=== PATIENT | female | born 1940 | race Caucasian/White ===

== ENCOUNTER → 2017-08-17 | Outpatient (CLI) | payer OTHER, BC ==
[~2017-08-17] MED LIST: IOPAMIDOL (ISOVUE-300) 100 ML BTL ONE
== END ==
LOC: FIMAGING 12:44
PROVIDERS: ATTEND Physician Assistant
DX: K76.9 Liver disease, unspecified (principal); I87.8 Other specified disorders of veins; K59.00 Constipation, unspecified; K57.00 Diverticulitis of small intestine with perforation and abscess without bleeding
CPT/HCPCS: 74177; Q9967

== ENCOUNTER → 2017-08-24 | Outpatient (CLI) | payer OTHER, BC ==
[~2017-08-24] MED LIST changes: -IOPAMIDOL (ISOVUE-300) 100 ML BTL ONE; +REGADENOSON 0.4 MG/5 ML SYR IVP ONE
--- NOTE | 2017-08-25 01:27 | CPR ---
[f rep st] NONINVASIVE CARDIAC PROCEDURE REPORT DATE OF PROCEDURE: 08/24/2017 PROCEDURE: Lexiscan nuclear stress test. INDICATION: The patient is a 77-year-old female with a history of coronary artery disease status pos t stenting to the left anterior descending artery in April 2012 who presented to our office for preop clearance. She has a history of chronic hypoxia, on continuous oxygen. She has also been complainin g of abdominal discomfort and very rare chest discomfort. DESCRIPTION OF PROCEDURE: Consent was obtained, and the patient was placed on continuous telemetry. Her resting EKG revealed normal sinus rhythm at a rate of 64, LA interval of 140, QRS duration of 86 , and a QTc of 458. She had inferior Q-waves. The patient was unable to walk on a treadmill seconda ry to knee pain and therefore, was injected with Lexiscan. She had mild symptoms associated with the infusion. She remained in normal sinus rhythm without any significant ST-T wave changes throughout the study. Her blood pressure at rest was 122/80 and remained stable throughout the procedure. PLAN: Await nuclear images. /[id number]/MODL
== END ==
LOC: FIMAGING 13:33
PROVIDERS: ATTEND Physician Assistant
DX: Z01.810 Encounter for preprocedural cardiovascular examination (principal); I25.10 Atherosclerotic heart disease of native coronary artery without angina pectoris; I10 Essential (primary) hypertension
CPT/HCPCS: 78452; A9500; J2785

== ENCOUNTER 2017-09-07 08:42 | Inpatient (IN) | payer OTHER, BC ==
--- NOTE | 2017-09-06 11:56 | GHP ---
[f rep st] PREOP HISTORY AND PHYSICAL DATE OF ADMISSION: 09/07/2017 HISTORY: The patient is a 77-year-old female, who presents with left knee pain, stiffness and swelli ng. She has longstanding left knee osteoarthritis, this impacts her activities of daily living, caus es her to limp and have an abnormal gait. She has tried multiple conservative measures. She has had a previous scope and viscosupplementation series. She has tried therapeutic exercises. Her knee is becoming less and less manageable for her in terms of quality of life, so a left total knee arthropl asty is planned. PAST MEDICAL HISTORY: Significant for coronary artery disease, she has a stent, hypercholesterolemia , hypertension. She does have sleep apnea and uses a CPAP machine. ALLERGIES: She has no known drug allergies. CURRENT MEDICATIONS: Diltiazem 180 mg daily, sublingual nitroglycerin if needed, omeprazole 40 mg p. o. daily, oxybutynin chloride 5 mg p.o. daily, supplement PreserVision, sertraline 50 mg tablets p.o. daily, simvastatin 10 mg p.o. daily. SURGICAL HISTORY: Includes bilateral cataracts, appendectomy, colonoscopy, had a right bunion proced ure in 2008, knee scope in 2004, tonsillectomy, total hysterectomy, nasal septal procedure. REVIEW OF SYSTEMS: CARDIOPULMONARY: Positive for her coronary artery disease as well as sleep apnea . GI: Positive reflux. PHYSICAL EXAM: GENERAL: A well-developed, well-nourished female in no apparent distress. HEAD AND NECK: Normocephalic, atraumatic. CHEST: Clear. CARDIOVASCULAR: Regular rate and rhythm. ABDOMEN : Soft. NEUROLOGIC: She is alert and oriented x3. EXTREMITIES: Examination of the left knee show s varus alignment. She has a small flexion contracture. She flexes only to about 90 degrees. She h as an effusion and significant joint line tenderness, especially medially. Her skin and neurovascula r exams appear intact. IMPRESSION: Left knee osteoarthritis. PLAN: Left total knee arthroplasty. Benefits and risks of surgery have been reviewed with the patie nt. She understands that the risks include infection, damage to blood vessels and nerves, failure or loosening of the components and need for revision, blood clot in the leg or lungs, bleeding and need for transfusion. She was seen for medical clearance at [facility] in August 2017. Of note, her aspirin that she was using at 325 mg was discontinued. She was placed on 81 mg of aspirin, and her Plavix was discontinued on 08/11/2017. /[id number]/MODL
[~2017-09-07 08:42] MED LIST changes: +POVIDONE-IODINE 20 ML in SODIUM CL IRRIG SOLUTION 500 ML IRR ONE; -REGADENOSON 0.4 MG/5 ML SYR IVP ONE; +ROPIVACAINE 0.2% 80 MG, EPINEPHrine 0.2 MG, KETOROLAC TROMETHAMINE 30 MG in BAG 0 ML IU ONE; +TRANEXAMIC ACID 760 MG in NS 100 ML IV ONE
[2017-09-07] MEDS ORDERED: ceFAZolin 1 GM/5 ML SYR ONE (08:52)
[2017-09-07] MEDS ORDERED: FAMOTIDINE 20 MG TAB PO ONE (09:10)
[2017-09-07] MEDS ORDERED: DEXAMETHASONE 4 MG/ML VIAL IVP ONE (09:10)
[2017-09-07] MEDS ORDERED: ACETAMINOPHEN 325 MG TAB PO ONE (09:10)
[2017-09-07] MEDS ORDERED: ceFAZolin 2 GM/SWFI 2 GM/20 ML SYR IVP ONE (09:10)
[2017-09-07] MEDS ORDERED: LIDOCAINE 1% 2 ML INJ ID PRN (09:16)
[2017-09-07] MEDS ORDERED: LR 1,000 ML IV ONE (09:16)
[2017-09-07 09:33] LABS: PLATELET COUNT 178 10^3/uL (150-400)
[2017-09-07] MEDS ORDERED: BUPIVACAINE 0.5% 30 ML SDV ONE (09:48)
[2017-09-07] MEDS ORDERED: PROPOFOL/EMULSION 500 MG/50 ML BOTTLE IV ONE ×2 (09:49→11:10)
[2017-09-07] MEDS ORDERED: fentaNYL 100 MCG/2 ML INJ ONE (10:37)
[2017-09-07] MEDS ORDERED: ALBUTEROL 3 ML DEYVIAL IH PRN (11:17)
[2017-09-07] MEDS ORDERED: LR 500 ML IV PRN (11:17)
[2017-09-07] MEDS ORDERED: ACETAMINOPHEN 500 MG TAB PO PRN (11:17)
[2017-09-07] MEDS ORDERED: ONDANSETRON 4 MG/2 ML VIAL IVP PRN ×2 (11:17→12:06)
[2017-09-07] MEDS ORDERED: HYDROmorphONE/DILAUDID 1 MG/ML INJ IVP PRN (11:17)
[2017-09-07] MEDS ORDERED: OXYCODONE/APAP 5/325 TAB PO PRN (11:17)
[2017-09-07] MEDS ORDERED: NALOXONE HCL 0.4 MG/ML INJ IVP PRN ×2 (11:17)
[2017-09-07] MEDS ORDERED: fentaNYL 100 MCG/2 ML INJ IVP PRN (11:17)
--- NOTE | 2017-09-07 12:00 | POSTANESTH ---
Post Anesthetic Evaluation Cardiovascular Status: Normal, Stable Respiratory Status: Normal, Stable Level of Consciousness/Mental Status: Can Participate in Eval Pain Control: Adequate, Prn Tx Ordered Nausea/Vomiting Control: Adequate, Prn Tx Ordered Complications Possibly Related to Anesthesia: None Noted
[2017-09-07] MEDS ORDERED: PROMETHAZINE HCL 25 MG SUPPR PR PRN (12:06)
[2017-09-07] MEDS ORDERED: POLYETHYLENE GLYCOL 3350 17 GM PKT PO PRN (12:06)
[2017-09-07] MEDS ORDERED: CYCLOBENZAPRINE 10 MG TAB PO PRN (12:06)
[2017-09-07] MEDS ORDERED: DIPHENOXYLATE/ATROPINE LOMOTIL 1 TAB PO PRN (12:06)
[2017-09-07] MEDS ORDERED: MAGNESIUM HYDROXIDE 30 ML UDCUP PO PRN (12:06)
[2017-09-07] MEDS ORDERED: KETOROLAC 30 MG/1 ML SDV IVP PRN (12:06)
[2017-09-07] MEDS ORDERED: PROMETHAZINE HCL 25 MG/ML INJ IVP PRN (12:06)
[2017-09-07] MEDS ORDERED: TEMAZEPAM 15 MG CAP PO PRN (12:06)
[2017-09-07] MEDS ORDERED: diphenhydrAMINE 25 MG CAP PO PRN (12:06)
[2017-09-07] MEDS ORDERED: ONDANSETRON DISINTEGRATING 4 MG TAB PO PRN (12:06)
[2017-09-07] MEDS ORDERED: BISACODYL 10 MG SUPP PR PRN (12:06)
[2017-09-07] MEDS ORDERED: METOCLOPRAMIDE 10 MG/2 ML VIAL IVP PRN (12:06)
[2017-09-07] MEDS ORDERED: LACTULOSE 20 GM/30 ML UDCUP PO PRN (12:06)
[2017-09-07] MEDS ORDERED: NITROGLYCERIN 0.4 MG BTL SL PRN (12:08)
[2017-09-07] MEDS ORDERED: LR 1,000 ML IV SCH (12:30)
--- NOTE | 2017-09-07 13:10 | PDANEPAE ---
ANE Past Medical History - Cardiovascular History Hx Hypertension: Yes Hx Arrhythmias: No Hx Chest Pain: Yes Hx Coronary Artery / Peripheral Vascular Disease: No Hx CHF / Valvular Disease: No Hx Palpitations: No - Pulmonary History Hx COPD: No Hx Asthma/Reactive Airway Disease: No Hx Recent Upper Respiratory Infection: No Hx Oxygen in Use at Home: Yes O2 in Use at Home (L/minute): 3 Hx Sleep Apnea: Yes Sleep Apnea Screening Result - Last Documented: Positive Pulmonary History Comment: TEMO USING C-PAP HS AND DURING THE DAY OXYGEN FOR HYPOXEMIA AT ALTITUDE - Neurologic History Hx Cerebrovascular Accident: No Hx Seizures: No Hx Dementia: No - Endocrine History Hx Diabetes: No Obesity: yes - Renal History Hx Renal Disorders: Yes Renal History Comment: OVER ACTIVE BLADDER - Liver History Hx Hepatic Disorders: No - Neurological & Psychiatric Hx Hx Neurological and Psychiatric Disorders: Yes Neurological / Psychiatric History Comment: ANXIETY - Cancer History Hx Cancer: No - Congenital Disorder History Hx Congenital Disorders: No - GI History Hx Gastrointestinal Disorders: Yes Gastrointestinal History Comment: HEARTBURN - Other Health History Other Health History: OSTEOARTHRITIS. INTERMITTENT NAUSEA AND VOMITING,DIARRHEA - Chronic Pain History Chronic Pain: Yes (LT KNEE) - Surgical History Prior Surgeries: MATT CATARACT. APPY. HEART STENT. MATT BUNION. LT KNEE SCOPE. HYSTERECTOMY. SEPTOPLASTY. REMVL LT BREAST CYST ANE Review of Systems Review of systems is: negative Review of Systems: - Exercise capacity METS (RN): 3 METS ANE Patient History - Allergies Allergies/Adverse Reactions: No Known Allergies Allergy (Unverified 10/19/09 07:53) - Home Medications Home medications: home medication list seen and reviewed Home Medications: Diltiazem Cd [Cardizem ER 180 MG (RX)] 180 mg PO DAILY 04/05/12 [Last Taken 04/18] Nitroglycerin [Nitrostat 0.4 mg (RX)] 0.4 mg SL PRN PRN 04/05/12 [Last Taken Unknown] Simvastatin [Zocor 10 mg (RX)] 10 mg PO DAILY 04/05/12 [Last Taken 09/06/17] Aspirin [Aspirin 325 mg (*)] 325 mg PO HS 08/04/17 [Last Taken 08/11/17] Clopidogrel Bisulfate [Plavix (*)] 75 mg PO DAILY 08/04/17 [Last Taken 08/11/17] Omeprazole [Prilosec 20 mg] 40 mg PO BIDMEAL 08/04/17 [Last Taken 09/07/17] Oxybutynin Chloride Xl [Ditropan Xl 5mg (*)] 5 mg PO BID 08/04/17 [Last Taken ] traMADol [Ultram 50 mg (*)] 50 mg PO BID 08/04/17 [Last Taken 09/07/17] Sertraline HCl [Zoloft 50mg (*)] 50 mg PO HS 08/13/17 [Last Taken 09/07/17] - NPO status NPO Since - Liquids (Date): 09/06/17 NPO Since - Liquids (Time): 19:30 NPO Since - Solids (Date): 09/06/17 NPO Since - Solids (Time): 19:00 - Smoking Hx Smoking Status: Never smoked ANE Labs/Vital Signs - Labs Result Diagrams: 09/07/17 09:20 - Vital Signs Blood Pressure: 116/78 Heart Rate: 73 Respiratory Rate: 17 O2 Sat (%): 92 Height: 154.94 cm Weight: 76.204 kg ANE Physical Exam - Airway Neck exam: FROM Mallampati Score: Class 2 Mouth exam: normal dental/mouth exam - Pulmonary Pulmonary: no respiratory distress - Cardiovascular Cardiovascular: regular rate and rhythym - ASA Status ASA Status: III ANE Anesthesia Plan Anesthesia Plan: spinal Regional Anesthesia: single shot NB, adductor canal FNB Urgent/Emergent Case: Erika cuevas completed preop but documented later for safe timely pt care
--- NOTE | 2017-09-07 13:19 | GOP ---
[f rep st] OPERATIVE REPORT DATE OF OPERATION: 09/07/2017 SURGEON: Luis De La Rosa MD HAZARDOUS MATERIAL SPECIALIST: Juan Lee, CSFA, LSA, medical necessity. PREOPERATIVE DIAGNOSIS: Left knee osteoarthritis. POSTOPERATIVE DIAGNOSIS: Left knee osteoarthritis. PROCEDURE PERFORMED: Left total knee arthroplasty. FINDINGS: SPECIMENS: include excised bone. ESTIMATED BLOOD LOSS: Estimated blood loss minimal. INDICATIONS: The patient is a 77-year-old female, who presents with history, exam and x-rays consist ent with severe left knee osteoarthritis. She has tried multiple conservative measures, including vi scosupplementation series. She continues to have pain that impacts her gait, her range of motion, qu ality of life and activities of daily living. She has elected to undergo a left total knee arthropla sty. DESCRIPTION OF PROCEDURE: The patient was taken to the operating room, in the seated position a spin al anesthetic was administered. She then had IV sedation. She received 2 g of IV Ancef, she receive d her first dose of tranexamic acid. A tourniquet was fit high on the left thigh and left leg was pr epped and draped free with chlorhexidine in the usual fashion. We used standard draping. The limb w as elevated, exsanguinated, tourniquet inflated 250 mmHg. I made a longitudinal incision in the midl ine. I used a medial parapatellar arthrotomy. I inverted the patella. I removed osteophytes and me asured the thickness of the patella which was quite thin, I removed about 6 mm of cartilage and bone leaving 11 mm of the patella and I sized this to a 32. I drilled peg holes. The combination of the patella and the implant was a little thicker than her original dimension but I want to preserve enoug h bone to avoid fracture. The component was a good fit. I then flexed the knee. I drilled a ship's pilot hole in the distal femur using intramedullary device to gauge my distal femoral cut. I did a 5 degre e valgus cut. There was no flexion contracture, so I did a neutral 5 degree valgus cut. I sized the femur to a size 4. I applied the cutting block and then completed the anterior, posterior and chamf er cuts, as well as the notch cuts for this bi-cruciate stabilized knee. The size 4 component was a good fit. I placed a posterior and lateral retractors. I debrided the labral tissue. I used an ext ramedullary device on the tibia. I adjusted for posterior slope and rotation, appropriate depth and made a transverse cut. I sized the tibia at a 3 and dialed in the rotation, marked this and complete d the tibial prep. Trial reductions showed that a 9 mm liner was a good fit. All the components wer e removed. I jet lavaged all the surfaces with antibiotic solution and dried them. Cement was appli ed to the tibia and the tibial component was hammered into place. Excess cement removed. Likewise, the femoral component was applied and then the patella. I did trial reductions, and I found that a 1 0 mm liner was the best fit so the cross-linked poly tibial liner was snapped into the tibial tray. The knee had excellent stability, full extension, nice rollback in flexion. The patella tracked well . Collateral stability was excellent. I used antibiotic irrigation including a Betadine rinse. I i nfiltrated a joint cocktail. A second tranexamic acid dose was given. The arthrotomy was closed wit h interrupted [id number] sutures of 0 [place], subcutaneous tissue was closed with 3-0 Monocry l, and the skin with ruddy. The wound was dressed with Betadine-soaked Adaptic, 4 x 4, sterile Web ril, and a long-leg NOEMÍ stocking. There were no complications. DRAINS: None. COUNTS: All counts correct. DISPOSITION: The patient was taken in stable condition to recovery. TOURNIQUET TIME: About 70 minutes. SUMMARY OF COMPONENTS: This is a Solomon and Nephew, bi cruciate stabilized knee. All components ceme nted. The femur is Oxinium. The tibial tray is crosslink poly. The femur size 4, tibia size 3, pat symone 32 and the liner is 10 mm thick. /[id number]/MODL
[2017-09-07] MEDS: ceFAZolin 2 GM/DEXTROSE 100 ML IV SCH ×2 (13:46→22:12)
[2017-09-07] MEDS: PANTOPRAZOLE SODIUM 40 MG TAB PO SCH (17:56)
[2017-09-07] MEDS: ACETAMINOPHEN 325 MG TAB PO SCH ×2 (17:56→22:57)
[2017-09-07] MEDS ORDERED: NON-FORMULARY NEW DRUG (Omeprazole [Prilosec 20 Mg] 40 MG) PO SCH (18:00)
[2017-09-07] MEDS: ASPIRIN 325 MG TAB PO SCH (20:48)
[2017-09-07] MEDS: FAMOTIDINE 20 MG TAB PO SCH (20:50)
[2017-09-07] MEDS: OXYBUTYNIN 5 MG EXT REL TAB PO SCH (20:51)
[2017-09-07] MEDS: SENNOSIDES/DOCUSATE SODIUM TAB PO SCH (20:54)
[2017-09-07] MEDS ORDERED: SERTRALINE HCL 50 MG TAB PO SCH (21:00)
[2017-09-07] MEDS ORDERED: ASPIRIN 325 MG TAB PO SCH (21:00)
[2017-09-07] MEDS: oxyCODONE IR 5 MG TAB PO PRN (22:59)
[2017-09-08 05:08] VITALS: RESP 16
[2017-09-08] MEDS: oxyCODONE IR 5 MG TAB PO PRN ×2 (05:19→15:18)
[2017-09-08] MEDS: ACETAMINOPHEN 325 MG TAB PO SCH ×2 (05:19→12:02)
[2017-09-08] MEDS ORDERED: FLU VACC QS 2017-18 (3YR+)/PF 0.5 ML SYR (FLUARIX QUAD) IM ONE (05:21)
--- NOTE | 2017-09-08 07:53 | SOAPPROG ---
SOAP Progress Note Assessment/Plan: Assessment: POD#1 L TKA, pain controlled, Hct 39 Plan: 09/08/17 07:49 PT/OT. Rehab stay, march d/c later today Objective: Vital Signs Temp Pulse Resp BP Pulse Ox 36.9 C 73 16 129/76 H 94 09/08/17 04:00 09/08/17 04:00 09/08/17 04:00 09/08/17 04:00 09/08/17 04:00 Laboratory Results 09/08/17 04:59 09/07/17 09/08/17 09/09/17 05:59 05:59 05:59 Intake Total 810 Output Total 976 Balance -166 ICD10 Worksheet Patient Problems: Problems Problem Status Onset Osteoarthritis of left knee Acute Osteoarthritis of left knee Acute - ICD10 Problem Qualifiers (1) Osteoarthritis of left knee (2) Osteoarthritis of left knee
--- NOTE | 2017-09-08 07:56 | PDIAF ---
- Diagnosis Code Status: Full Code - Medication Management Discharge Medications: Medications to Continue on Transfer Diltiazem Cd [Cardizem ER 180 MG (RX)] 180 mg PO DAILY 04/05/12 [Last Taken 04/18] Nitroglycerin [Nitrostat 0.4 mg (RX)] 0.4 mg SL PRN PRN 04/05/12 [Last Taken Unknown] Simvastatin [Zocor 10 mg (RX)] 10 mg PO DAILY 04/05/12 [Last Taken 09/06/17] Aspirin [Aspirin 325 mg (*)] 325 mg PO HS 08/04/17 [Last Taken 08/11/17] Clopidogrel Bisulfate [Plavix (*)] 75 mg PO DAILY 08/04/17 [Last Taken 08/11/17] Omeprazole [Prilosec 20 mg] 40 mg PO BIDMEAL 08/04/17 [Last Taken 09/07/17] Oxybutynin Chloride Xl [Ditropan Xl 5mg (*)] 5 mg PO BID 08/04/17 [Last Taken ] traMADol [Ultram 50 mg (*)] 50 mg PO BID 08/04/17 [Last Taken 09/07/17] Sertraline HCl [Zoloft 50mg (*)] 50 mg PO HS 08/13/17 [Last Taken 09/07/17] Discharge Medications: Refer to the Discharge Home Medication list for PRN reason. - Orders Diet Recommendation: no restrictions on diet Diet Texture: Regular Texture Diet - Follow Up Care Current Providers and Referrals: CORINA ROSAS [Other]
--- NOTE | 2017-09-08 08:00 | PDIAF ---
- Diagnosis Code Status: Full Code - Medication Management Discharge Medications: Medications to Continue on Transfer Diltiazem Cd [Cardizem ER 180 MG (RX)] 180 mg PO DAILY 04/05/12 [Last Taken 04/18] Nitroglycerin [Nitrostat 0.4 mg (RX)] 0.4 mg SL PRN PRN 04/05/12 [Last Taken Unknown] Simvastatin [Zocor 10 mg (RX)] 10 mg PO DAILY 04/05/12 [Last Taken 09/06/17] Aspirin [Aspirin 325 mg (*)] 325 mg PO HS 08/04/17 [Last Taken 08/11/17] Clopidogrel Bisulfate [Plavix (*)] 75 mg PO DAILY 08/04/17 [Last Taken 08/11/17] Omeprazole [Prilosec 20 mg] 40 mg PO BIDMEAL 08/04/17 [Last Taken 09/07/17] Oxybutynin Chloride Xl [Ditropan Xl 5mg (*)] 5 mg PO BID 08/04/17 [Last Taken ] traMADol [Ultram 50 mg (*)] 50 mg PO BID 08/04/17 [Last Taken 09/07/17] Sertraline HCl [Zoloft 50mg (*)] 50 mg PO HS 08/13/17 [Last Taken 09/07/17] Discharge Medications: Refer to the Discharge Home Medication list for PRN reason. - Orders Services needed: Physical Therapy Diet Recommendation: no restrictions on diet Diet Texture: Regular Texture Diet Vladimir Stockings Discontinue Date: 2 wks Wound Care Instructions: keep covered, clean and dry Sutures/[place] Site: knee, will remove my office at 2 weeks Activity/Weight Bearing Restrictions: WBAT, full ROM - Follow Up Care Current Providers and Referrals: CORINA ROSAS [Other]
[2017-09-08] MEDS: PANTOPRAZOLE SODIUM 40 MG TAB PO SCH (08:35)
[2017-09-08] MEDS: FAMOTIDINE 20 MG TAB PO SCH (08:36)
[2017-09-08] MEDS: OXYBUTYNIN 5 MG EXT REL TAB PO SCH (08:36)
[2017-09-08] MEDS: SENNOSIDES/DOCUSATE SODIUM TAB PO SCH (08:36)
[2017-09-08] MEDS: ASPIRIN 325 MG TAB PO SCH (08:36)
[2017-09-08 08:46] VITALS: TEMP 98.4; O2SAT 91
[2017-09-08] MEDS ORDERED: DILTIAZEM CD 180 MG CAP PO SCH (09:00)
[2017-09-08] MEDS ORDERED: NON-FORMULARY NEW DRUG (Simvastatin [Zocor 10 Mg] 10 MG) PO SCH (09:00)
[2017-09-08] MEDS ORDERED: PRAVASTATIN SODIUM 20 MG TAB PO SCH (09:00)
[2017-09-08 12:25] VITALS: BP 113/79; PULSE 66
--- NOTE | 2017-09-08 13:49 | ASMTCMCOM ---
CM Note CM Note Notes: Patient is POD #[address] De La Rosa. She will discharge to [facility]. Although she is from [place], she has daughters in the area and would prefer to do rehab here. Her Brandon will stay locally. All paperwork faxed to and received by [facility]. They have set up transport for 1530 today. MADHU Templeton to call report. Date Signed: 09/08/2017 01:49 PM Electronically Signed By:Nisa Phillips RN
--- NOTE | 2017-09-09 12:16 | ASDISCHSUM ---
Discharge Information Plan Status:SNF Medically Cleared to Leave: Discharge Date:09/08/2017 03:50 PM D/C Disposition:Intermediate Facility ADT D/C Disposition:Other Rehab, Not [place] Projected Discharge Date:09/08/2017 03:00 PM Transportation at D/C:Wheelchair Van Discharge Delay Reason: Follow-Up Date:09/08/2017 03:00 PM Discharge Slot: Final Diagnosis: Placement Information Referral Type:*Retirement/SNF Referral ID:-[id number] Provider Name:[facility] Address 1:[address] Address 2: City:[place] Selection Factors: State:[place] Patient Contact Information Contact Name:DILCIA Relationship: Address:[address] Work Phone: City:[facility] Alternate Phone: State/Zip Code:[place] [phone] Email: Financial Information Financial Class: Primary Plan Desc:MEDICARE INPATIENT Primary Plan Number:[id number] Secondary Plan Desc:[facility] Secondary Plan Number:[id number] Assessment Information [facility] CM Progress Note CM Note CM Note Notes: Patient is POD #[address] De La Rosa. She will discharge to [facility]. Although she is from [place], she has daughters in the area and would prefer to do rehab here. Her Brandon will stay locally. All paperwork faxed to and received by [facility]. They have set up transport for 1530 today. MADHU Templeton to call report. Date Signed: 09/08/2017 01:49 PM Electronically Signed By:Nisa Phillips RN Intervention Information
--- NOTE | 2017-09-09 12:16 | ASDISCHSUM ---
Discharge Information Plan Status:SNF Medically Cleared to Leave: Discharge Date:09/08/2017 03:50 PM D/C Disposition:[facility] Facility ADT D/C Disposition:Other Rehab, Not [place] Projected Discharge Date:09/08/2017 03:00 PM Transportation at D/C:Wheelchair Van Discharge Delay Reason: Follow-Up Date:09/08/2017 03:00 PM Discharge Slot: Final Diagnosis: Placement Information Referral Type:*Fdc/SNF Referral ID:[id number] Provider Name:[facility] Address 1:[address] Address 2: City:[place] Selection Factors: State:[place] Patient Contact Information Contact Name:DILCIA Relationship: Address:[address] Work Phone: City:[facility] Alternate Phone: State/Zip Code:[place] [phone] Email: Financial Information Financial Class: Primary Plan Desc:MEDICARE INPATIENT Primary Plan Number:[id number] Secondary Plan Desc:[facility] Secondary Plan Number:[id number] Assessment Information [facility] CM Progress Note CM Note CM Note Notes: Patient is POD #[address] De La Rosa. She will discharge to [facility]. Although she is from [place], she has daughters in the area and would prefer to do rehab here. Her Brandon will stay locally. All paperwork faxed to and received by [facility]. They have set up transport for 1530 today. MADHU Templeton to call report. Date Signed: 09/08/2017 01:49 PM Electronically Signed By:Nisa Phillips RN Intervention Information
--- NOTE | 2017-09-09 12:16 | ASDISCHSUM ---
Discharge Information Plan Status:SNF Medically Cleared to Leave: Discharge Date:09/08/2017 03:50 PM D/C Disposition:[facility] Facility ADT D/C Disposition:Other Rehab, Not [place] Projected Discharge Date:09/08/2017 03:00 PM Transportation at D/C:Wheelchair Van Discharge Delay Reason: Follow-Up Date:09/08/2017 03:00 PM Discharge Slot: Final Diagnosis: Placement Information Referral Type:*Long-Term/SNF Referral ID:[facility]-[id number] Provider Name:[facility] Address 1:[address] Address 2: City:[place] Selection Factors: State:[place] Patient Contact Information Contact Name:DILCIA Relationship: Address:[address] Work Phone: City:[facility] Alternate Phone: State/Zip Code:[place] [phone] Email: Financial Information Financial Class: Primary Plan Desc:MEDICARE INPATIENT Primary Plan Number:[id number] Secondary Plan Desc:[facility] Secondary Plan Number:[id number] Assessment Information [facility] CM Progress Note CM Note CM Note Notes: Patient is POD #[address] De La Rosa. She will discharge to [facility]. Although she is from [place], she has daughters in the area and would prefer to do rehab here. Her Brandon will stay locally. All paperwork faxed to and received by [facility]. They have set up transport for 1530 today. MADHU Templeton to call report. Date Signed: 09/08/2017 01:49 PM Electronically Signed By:Nisa Phillips RN Intervention Information
== END 2017-09-08 15:50 | DRG 470 ==
LOC: F3N 08:42
PROVIDERS: ADMIT Orthopaedic Surgery; ATTEND Orthopaedic Surgery
PROC: 0SRD0J9 Replacement of Left Knee Joint with Synthetic Substitute, Cemented, Open Approach (ICD-10-PCS; principal; 2017-09-07 10:45)
DX: M17.12 Unilateral primary osteoarthritis, left knee (principal); I25.10 Atherosclerotic heart disease of native coronary artery without angina pectoris; E78.00 Pure hypercholesterolemia, unspecified; I10 Essential (primary) hypertension; G47.33 Obstructive sleep apnea (adult) (pediatric); Z95.5 Presence of coronary angioplasty implant and graft
CPT/HCPCS: 97110-GP; 97116-GP; 97161-GP; 97165-GO; C1713; G0008; G8978-GP-CJ; G8979-GP-CI; G8987-GO-CI; G8988-GO-CI; G8989-GO-CI; J0171; J0690; J1100; J1885; J2704; J2795; J3010

== ENCOUNTER → 2018-01-05 | Outpatient (CLI) | payer OTHER, BC | LOC: BHFA 14:00 | PROVIDERS: ATTEND Internal Medicine | DX: I25.10 Atherosclerotic heart disease of native coronary artery without angina pectoris (principal); I10 Essential (primary) hypertension ==

== ENCOUNTER → 2019-04-06 | Outpatient (CLI) | payer OTHER, BC | LOC: FIMAGING 09:17 ==

== ENCOUNTER 2019-04-22 10:55 | Day surgery (SDC) | payer OTHER, BC | END 2019-04-22 15:26 | disposition home or self-care (01) | LOC: FSGY 10:55 ==